=== PATIENT | female | born 1990 | race African-American/Black ===

== ENCOUNTER 2017-11-07 20:33 | Emergency (ER) | payer OTHER, SELFPAY ==
[2017-11-07 21:25] LABS: Bilirubin Negative (Negative); Blood, Urine Negative (Negative); Clarity Slightly Cloudy (Clear); Glucose, Urine (Dipstick) Negative (Negative); Leukocyte Trace (Negative); Nitrite Positive (Negative); Protein, Urine (Dipstick) 30 mg/dL (Neg-Trace); Urobilinogen 0.2 mg/dL (0.2-1.0)
[2017-11-07 21:28] LABS: Pregnancy Test - Urine (BHCG) POSITIVE (Negative); Pregu Control Background? CLEAR/WHITE (CLR/WHITE); Pregu Control Bar Appear? YES (CONTROL BAR)
[2017-11-07 21:29] LABS: Bacteria/HPF 4+ HPF (None Seen); WBC/HPF 21-50 HPF (0-3); Yeast-All Forms 1+ HPF (None Seen)
[2017-11-07] MEDS ORDERED: Sterile Water 10 ML ONE (22:00)
[2017-11-07] MEDS ORDERED: cefTRIAXone\\ROCEPHIN 1 GM VIAL ONE (22:00)
[2017-11-07] MEDS ORDERED: Ondansetron ODT 4 MG TAB ONE (22:00)
== END 2017-11-07 22:23 | disposition home or self-care (01) ==
LOC: MADERS 20:33
DX: O23.41 Unspecified infection of urinary tract in pregnancy, first trimester (principal); Z3A.00 Weeks of gestation of pregnancy not specified
CPT/HCPCS: 81001; 81025; 96372; A4216; J0696; Q0162

== ENCOUNTER 2017-11-17 12:36 | Emergency (ER) | payer MEDICAID ==
[~2017-11-17 12:36] MED LIST: Sodium Chloride 0.9% 1,000 ML BAG ONE
[2017-11-17] MEDS ORDERED: Metoclopramide HCl 10 MG/2 ML VIAL ONE (13:38)
--- NOTE | 2017-11-17 15:40 | ULT ---
OB ULTRASOUND: Date: 11-17-17 History: Left lower quadrant pain for three days. History of positive test. FINDINGS: Multiple transabdominal and endovaginal sonographic images of the pelvis are obtained. There is a fluid collection within the endometrial canal which contains both a pole and a yolk sac. The crown-rump length measures 2.22 cm, with a gestational age by ultrasound of 8 weeks 6 days. Cardiac doppler does demonstrate heart tones with a heart rate ranging from 172-173 beats /minute. The right ovary is not visualized. The left ovary is visualized and partially obscured but g rossly normal in appearance measuring 2.8 cm x 2.3 cm x 1.8 cm. Doppler evaluation of the left ovary with spectral analysis and color flow evaluation does demonstrat e arterial flow. No free fluid is seen in the cul-de-sac. IMPRESSION: 1. Single intrauterine gestation with heart tones documented. Gestational age by measurement of the crown-rump length is 8 weeks 6 days. Gestational age by the last menstrual period is 9 weeks 2 d ays. 2. Nonvisualization of the right ovary. POS: [facility]
[2017-11-17 15:41] LABS: Bilirubin Small (Negative); Blood, Urine Trace (Negative); Glucose, Urine (Dipstick) 100 mg/dL (Negative); Leukocyte Small (Negative); Nitrite Negative (Negative); Protein, Urine (Dipstick) 100 mg/dL (Neg-Trace); pH, Urine 5.5 (5.0-9.0)
[2017-11-17 15:50] LABS: Clarity Hazy (Clear)
[2017-11-17 15:51] LABS: Bacteria/HPF Rare-Few HPF (None Seen); Other Microscopic Description C&S SET UP; RBC/HPF 0-3 HPF (0-3); Squamous Epithelial 0-3 HPF (0-3)
== END 2017-11-17 16:15 | disposition home or self-care (01) ==
LOC: MADERS 12:36
DX: O21.1 Hyperemesis gravidarum with metabolic disturbance (principal); O23.41 Unspecified infection of urinary tract in pregnancy, first trimester; O12.11 Gestational proteinuria, first trimester; O99.341 Other mental disorders complicating pregnancy, first trimester; F41.9 Anxiety disorder, unspecified; F32.9 Major depressive disorder, single episode, unspecified; Z3A.09 9 weeks gestation of pregnancy
CPT/HCPCS: 36416; 76815; 81003; 81015; 87086; 96361; 96374; J2765; J7050

== ENCOUNTER 2017-12-08 10:19 | Emergency (ER) | payer MEDICAID, OTHER ==
[2017-12-08] MEDS ORDERED: Ondansetron HCl/PF 4 MG/2 ML Vial ONE (10:42)
[2017-12-08 11:22] LABS: ALT (SGPT) 19 U/L (8-55); AST (SGOT) 19 U/L (5-34); Albumin 4.1 g/dL (3.5-5.0); Alkaline Phosphatase 46 U/L (40-150); Anion Gap 20 mmol/L (10-20); BUN (Urea Nitrogen) 11 mg/dL (7.0-18.7); Bilirubin, Total 0.7 mg/dL (0.2-1.2); Calc. Creatinine Clearance 0 mL/min (70-130); Calcium 9.5 mg/dL (7.8-10.44); Carbon Dioxide 16 mmol/L (22-29); Chloride 103 mmol/L (98-107); Estimated GFR-MDRD Greater than 90; Globulin 3.2 g/dL (2.4-3.5); Glucose 96 mg/dL (70-105); Potassium 3.7 mmol/L (3.5-5.1); Protein, Total 7.3 g/dL (6.0-8.3); Sodium 135 mmol/L (136-145)
[2017-12-08 11:38] LABS: Hemoglobin 13.3 g/dL (12.0-16.0); Lymphocytes 12 % (21-51); MDiff Complete? YES; Mean Corpuscular HGB CONC 33.8 g/dL (32.0-36.0); Mean Corpuscular Hemoglobin 30.7 pg (27.0-31.0); Mean Corpuscular Volume 90.9 fL (78.0-98.0); Mean Platelet Volume 8.9 fL (7.4-10.4); Monocytes 4 % (0-10); Neutrophil 84 % (42-75); PLT Morphology Comment Appears Adequate; Platelet Count 244 thou/uL (130-400); RBC Distribution Width 14.1 % (11.5-14.5); RBC Morphology Normal; Red Blood Cell (RBC) Count 4.32 mill/uL (4.20-5.40); White Blood Cell (WBC) Count 12.5 thou/uL (4.8-10.8)
[2017-12-08] MEDS ORDERED: Acetaminophen 500 MG TAB ONE (11:52)
[2017-12-08 12:24] LABS: Bilirubin Small (Negative); Blood, Urine Negative (Negative); Clarity Clear (Clear); Glucose, Urine (Dipstick) Negative (Negative); Leukocyte Trace (Negative); Nitrite Negative (Negative); Protein, Urine (Dipstick) 100 mg/dL (Neg-Trace); Specific Gravity, Urine 1.035 (1.002-1.036); pH, Urine 5.5 (5.0-9.0)
[2017-12-08 12:25] LABS: Bacteria/HPF Rare-Few HPF (None Seen); RBC/HPF 0-3 HPF (0-3)
--- NOTE | 2017-12-08 12:29 | ULT ---
HISTORY: Left lower quadrant pain. Passing clots. Vaginal bleeding. TECHNIQUE: Multiple longitudinal and transverse images of an intrauterine are obtained using a Multi-H ertz curvilinear transducer. Real-time color-flow images, as well as spectral wave-form Doppler anal ysis, is used to evaluate the pelvis. FINDINGS: Images demonstrate a viable intrauterine with the fetus in a transverse presentation. The placenta is anterior. No evidence of placenta abruption is seen. Cardiac activity is seen in the fe tus, measuring 161 beats per minute. anatomic evaluation is limited due to the patient's age. Estimated gestational age measures 13 weeks 1 day with an estimated date of delivery of 06/14/2018. Estimated weight is 66 g. IMPRESSION: Viable intrauterine . Cardiac activity is confirmed. No definite evidence of placental abr uption or previa is seen. POS: [facility]
== END 2017-12-08 13:15 | disposition home or self-care (01) ==
LOC: MADERS 10:19
DX: O99.281 Endocrine, nutritional and metabolic diseases complicating pregnancy, first trimester (principal); E86.0 Dehydration; O99.341 Other mental disorders complicating pregnancy, first trimester; F41.9 Anxiety disorder, unspecified; F32.9 Major depressive disorder, single episode, unspecified; Z3A.11 11 weeks gestation of pregnancy
CPT/HCPCS: 36415; 76815; 80053; 81003; 81015; 85025; 96374; J2405; J7050

== ENCOUNTER 2018-03-30 07:46 | Emergency (ER) | payer OTHER ==
[2018-03-30] MEDS ORDERED: Bupivacaine PF 0.5% 30 ML VIAL ONE (08:06)
[2018-03-30] MEDS ORDERED: HYDROcodone/Acetaminophen 5/325 mg Tablet ONE (08:15)
== END 2018-03-30 08:22 | disposition home or self-care (01) ==
LOC: MADERS 07:46
DX: K08.89 Other specified disorders of teeth and supporting structures (principal); F41.9 Anxiety disorder, unspecified; F32.9 Major depressive disorder, single episode, unspecified; Z79.899 Other long term (current) drug therapy
CPT/HCPCS: S0020

== ENCOUNTER 2018-04-06 13:35 | Outpatient (CLI) | payer OTHER | END 2018-04-06 13:36 | disposition home or self-care (01) | LOC: MADLABBHPM 13:35 | PROVIDERS: ATTEND Family Medicine | DX: Z34.83 Encounter for supervision of other normal pregnancy, third trimester (principal) | CPT/HCPCS: 36415; 82951; 82952 ==

== ENCOUNTER 2018-05-11 16:02 | Emergency (ER) | payer OTHER ==
[2018-05-11 16:51] LABS: #Basophils 0.1 thou/uL (0.0-0.2); #Lymphocytes 1.5 thou/uL (1.20-3.40); #Monocytes 0.7 thou/uL (0.11-0.59); %Basophils 0.6 % (0.0-1.0); %Eosinophils 0.3 % (0.0-10.0); %Lymphocytes 13.1 % (21.0-51.0); %Monocytes 6.1 % (0.0-10.0); %Neutrophils 80.1 % (42.0-75.0); Hemoglobin 11.1 g/dL (12.0-16.0); Mean Corpuscular HGB CONC 31.7 g/dL (32.0-36.0); Mean Corpuscular Hemoglobin 27.3 pg (27.0-31.0); Mean Corpuscular Volume 86.4 fL (78.0-98.0); Mean Platelet Volume 8.5 fL (7.4-10.4); Platelet Count 267 thou/uL (130-400); Red Blood Cell (RBC) Count 4.07 mill/uL (4.20-5.40); White Blood Cell (WBC) Count 11.2 thou/uL (4.8-10.8)
[2018-05-11 17:00] LABS: Bilirubin Negative (Negative); Blood, Urine Trace (Negative); Glucose, Urine (Dipstick) Negative (Negative); Leukocyte Negative (Negative); Nitrite Negative (Negative); Protein, Urine (Dipstick) 30 mg/dL (Neg-Trace); Specific Gravity, Urine 1.025 (1.005-1.030); pH, Urine 6.5 (5.0-9.0)
[2018-05-11 17:02] LABS: Bacteria/HPF 1+ HPF (None Seen); Clarity Slightly Cloudy (Clear); RBC/HPF 0-3 HPF (0-3); WBC/HPF 0-3 HPF (0-3)
[2018-05-11] MEDS ORDERED: Acetaminophen 500 MG TAB ONE (17:05)
[2018-05-11] MEDS ORDERED: diphenhydrAMINE 50 MG/ML VIAL ONE (17:05)
[2018-05-11] MEDS ORDERED: Sodium Chloride 0.9% 1,000 ML ONE (17:05)
[2018-05-11 17:08] LABS: ALT (SGPT) 15 U/L (8-55); AST (SGOT) 18 U/L (5-34); Albumin 3.6 g/dL (3.5-5.0); Alkaline Phosphatase 94 U/L (40-150); Anion Gap 13 mmol/L (10-20); BUN (Urea Nitrogen) 6 mg/dL (7.0-18.7); Bilirubin, Total 0.6 mg/dL (0.2-1.2); Calc. Creatinine Clearance 0 mL/min (70-130); Calcium 9.6 mg/dL (7.8-10.44); Carbon Dioxide 23 mmol/L (22-29); Chloride 104 mmol/L (98-107); Estimated GFR-MDRD Greater than 90; Globulin 3.6 g/dL (2.4-3.5); Glucose 87 mg/dL (70-105); Potassium 3.2 mmol/L (3.5-5.1); Protein, Total 7.2 g/dL (6.0-8.3); Sodium 137 mmol/L (136-145)
== END 2018-05-11 18:10 | disposition home or self-care (01) ==
LOC: MADERS 16:02
DX: O99.353 Diseases of the nervous system complicating pregnancy, third trimester (principal); G44.209 Tension-type headache, unspecified, not intractable; O99.343 Other mental disorders complicating pregnancy, third trimester; F32.9 Major depressive disorder, single episode, unspecified; F41.9 Anxiety disorder, unspecified; Z79.899 Other long term (current) drug therapy; Z3A.34 34 weeks gestation of pregnancy
CPT/HCPCS: 36415; 80053; 81003; 81015; 85025; 96361; 96374; J1200; J7050

== ENCOUNTER 2018-11-08 13:13 | Outpatient (CLI) | payer OTHER ==
--- NOTE | 2018-11-08 14:08 | RAD ---
LUMBAR SPINE 3 VIEWS HISTORY: Low back pain FINDINGS: No fracture, subluxation or bony destruction is seen.
--- NOTE | 2018-11-08 14:16 | RAD ---
Exam: 2 views thoracic spine HISTORY: Pain. COMPARISON: None FINDINGS: There are 12 thoracic type vertebral bodies. Vertebral body height is maintained. No fractu re. Disc space heights are preserved. IMPRESSION: Unremarkable 2 views thoracic spine.
== END 2018-11-08 13:14 | disposition home or self-care (01) ==
LOC: MADRAD 13:13
PROVIDERS: ATTEND Family Medicine
DX: M54.6 Pain in thoracic spine (principal)
CPT/HCPCS: 72070; 72100